=== PATIENT | male | born 1975 | race Caucasian/White ===

== ENCOUNTER 2017-08-13 23:47 | Emergency (ER) | payer SELFPAY ==
[~2017-08-13] VITALS: Ht 167.6 cm; Wt 78.0 kg
[2017-08-13 23:48] VITALS: BP 170/114; PULSE 158; RESP 20; TEMP 98.6; O2SAT 97
[2017-08-14 00:08] VITALS: BP 162/103; PULSE 131; RESP 18; O2SAT 98
[2017-08-14 00:09] VITALS: O2SAT 97
[2017-08-14] MEDS ORDERED: SODIUM CHLOR 0.9% 1000 ML INJ 1,000 ML IV ONE (00:15)
[2017-08-14] MEDS ORDERED: KETOROLAC TROMETHAMINE 30 MG/ML (IVP) VIAL IV PUSH ONE (00:15)
--- NOTE | 2017-08-14 00:15 | PD ---
HPI Chief Complaint: Chest Pain Time Seen by Provider: 00:05 Travel History International Travel<30 days: No Contact w/Intl Traveler<30days: No Traveled to known affect area: No History of Present Illness HPI 42yo M with no significant PMH presents to the ED with c/o left sided chest pain for 2 days. States it has been constant today. Pressure like, radiates to jaw and left arm. Associated with nausea, sob. Pt also was drinking alcohol today and has alcohol on breath. Denies any vomiting, abdominal pain, fever, focal weakness or numbness. Denies any cocaine use. PFSH Past Medical History Cardiovascular Problems: Yes (A FIB) Past Surgical History Cholecystectomy: Yes Social History Alcohol Use: Yes (OCC) Tobacco Use: No Substance Use: No Allergies-Medications (Allergen,Severity, Reaction): Coded Allergies: No Known Allergies (Unverified , 08/13/17) Review of Systems Except as stated in HPI: all other systems reviewed are Neg Physical Exam Narrative GENERAL: 42yo M in mild distress.+alcohol on breath. SKIN: Focused skin assessment warm/dry. HEAD: Atraumatic. Normocephalic. EYES: Pupils equal and round. No scleral icterus. No injection or drainage. ENT: No nasal bleeding or discharge. Mucous membranes pink and moist. NECK: Trachea midline. No JVD. CARDIOVASCULAR: Tachycardic at 124bpm. RESPIRATORY: No accessory muscle use. Clear to auscultation. Breath sounds equal bilaterally. GASTROINTESTINAL: Abdomen soft, non-tender, nondistended. MUSCULOSKELETAL: No obvious deformities. No clubbing. No cyanosis. No edema. NEUROLOGICAL: Awake and alert. No obvious cranial nerve deficits. Motor grossly within normal limits. Normal speech. PSYCHIATRIC: Anxious appearing. Data Data Last Documented VS Vital Signs Date Time Temp Pulse Resp B/P (MAP) Pulse Ox O2 Delivery O2 Flow Rate FiO2 08/14/17 01:18 08/14/17 00:11 18 97 Room Air 08/14/17 00:08 131 08/13/17 23:48 98.6 Orders Orders Electrocardiogram (08/13/17 23:57) Complete Blood Count With Diff (08/13/17 23:57) Basic Metabolic Panel (Bmp) (08/13/17 23:57) Ckmb (Isoenzyme) Profile (08/13/17 23:57) Troponin I (08/13/17 23:57) Chest, Single Ap (08/13/17 23:57) Iv Access Insert/Monitor (08/13/17 23:57) Ecg Monitoring (08/13/17 23:57) Oxygen Administration (08/13/17 23:57) Oximetry (08/13/17 23:57) Sodium Chlor 0.9% 1000 Ml Inj (Ns 1000 M (08/14/17 00:15) Ketorolac Inj (Toradol Inj) (08/14/17 00:15) Alcohol (Ethanol) (08/13/17 23:57) Labs Laboratory Tests Test 08/14/17 00:13 White Blood Count 9.4 TH/MM3 Red Blood Count 4.40 MIL/MM3 Hemoglobin 13.9 GM/DL Hematocrit 40.4 % Mean Corpuscular Volume 91.8 FL Mean Corpuscular Hemoglobin 31.6 PG Mean Corpuscular Hemoglobin Concent 34.5 % Red Cell Distribution Width 14.9 % Platelet Count 259 TH/MM3 Mean Platelet Volume 8.4 FL Neutrophils (%) (Auto) 52.3 % Lymphocytes (%) (Auto) 35.4 % Monocytes (%) (Auto) 8.5 % Eosinophils (%) (Auto) 3.4 % Basophils (%) (Auto) 0.4 % Neutrophils # (Auto) 4.9 TH/MM3 Lymphocytes # (Auto) 3.3 TH/MM3 Monocytes # (Auto) 0.8 TH/MM3 Eosinophils # (Auto) 0.3 TH/MM3 Basophils # (Auto) 0.0 TH/MM3 CBC Comment DIFF FINAL Differential Comment Blood Urea Nitrogen 9 MG/DL Creatinine 0.84 MG/DL Random Glucose 111 MG/DL Calcium Level 8.2 MG/DL Sodium Level 143 MEQ/L Potassium Level 3.3 MEQ/L Chloride Level 109 MEQ/L Carbon Dioxide Level 25.2 MEQ/L Anion Gap 9 MEQ/L Estimat Glomerular Filtration Rate 101 ML/MIN Total Creatine Kinase 95 U/L Troponin I LESS THAN 0.02 NG/ML Ethyl Alcohol Level 291 MG/DL [facility] Medical Decision Making Medical Screen Exam Complete: Yes Emergency Medical Condition: Yes Interpretation(s) EKG: Sinus tachycardia at 124bpm. No ST segment elevation or depression. Differential Diagnosis Anxiety vs. atypical chest pain vs. GERD vs. pneumonia Narrative Course 42yo M with left side chest pain today. Pt was in sinus tachycardia. Pt smelled of alcohol and admits to drinking today although he is not intoxicated. Pt given NS IVF and toradol for pain. Pt became verbally abusive with the nurse and is upset that I am not giving him a stronger pain medication at this time. He is signing out AMA before all his blood results came back. Last heart rate on the monitor was 98bpm. He is AAOx 3 and ambulating without assistance. AMA: The risks of leaving against medical advice without further evaluation treatment were discussed with the patient. These risks include cardiac dysfunction, cardiac dysrhythmia, possible heart attack, possible stroke or . The patient indicated understanding of these risks and appeared to have the capacity to make this decision. Labs were later reviewed after pt left. Troponin negative. Mild hypokalemia at 3.3. Blood alcohol 291. CXR negative. Diagnosis Primary Impression: Chest pain Qualified Codes: R07.9 - Chest pain, unspecified Patient Instructions: General Instructions Departure Forms: Tests/Procedures Additional Instructions: Please follow up with primary care physician or return if you change your mind. Med/Other Pt SpecificInfo: No Change to Meds Disposition: 07 AGAINST MEDICAL ADVICE Condition: Stable Khushbu Deras DO Aug 14, 2017 00:15
[2017-08-14 00:44] LABS: AUTOMATED NEUTROPHIL # 4.9 TH/MM3 (1.8-7.7); BASOPHIL % 0.4 % (0.0-2.0); EOSINOPHIL # 0.3 TH/MM3 (0-0.4); EOSINOPHIL % 3.4 % (0.0-4.0); HEMATOCRIT 40.4 % (39.0-51.0); HEMO FLAGS DIFF FINAL; LYMPH % 35.4 % (9.0-44.0); LYMPHOCYTE # 3.3 TH/MM3 (1.0-4.8); MEAN CELL VOLUME 91.8 FL (80.0-100.0); MEAN CORPUSCULAR HEMOGLOBIN 31.6 PG (27.0-34.0); MEAN CORPUSCULAR HGB CONC 34.5 % (32.0-36.0); MONO % 8.5 % (0.0-8.0); NEUT % 52.3 % (16.0-70.0); PLATELET COUNT 259 TH/MM3 (150-450); RED CELL DISTRIBUTION WIDTH 14.9 % (11.6-17.2); WHITE BLOOD COUNT 9.4 TH/MM3 (4.0-11.0)
--- NOTE | 2017-08-14 01:27 | RADRPT ---
EXAM DATE/TIME: 08/14/2017 00:36 [facility] COMPARISON: No previous studies available for comparison. INDICATIONS : Chest pain. MEDICAL HISTORY : None. SURGICAL HISTORY : None. ENCOUNTER: Initial ACUITY: 1 day PAIN SCORE: 7/10 LOCATION: Bilateral chest FINDINGS: Single AP view of the chest. Calcified granulomas in the left lung. The lungs are otherwise clear. Ca rdiomediastinal silhouette within normal limits. No evidence of pleural effusion or pneumothorax. CONCLUSION: No acute cardiopulmonary disease identified. Patrice Shelton MD on August 14, 2017 at 1:25 Board Certified Radiologist. This report was verified electronically.
[2017-08-14 01:30] LABS: ANION GAP 9 MEQ/L (5-15); BICARBONATE 25.2 MEQ/L (21.0-32.0); BLOOD UREA NITROGEN 9 MG/DL (7-18); CHLORIDE 109 MEQ/L (98-107); GLOMERULAR FILTRATION RATE 101 ML/MIN (>89); POTASSIUM 3.3 MEQ/L (3.5-5.1); SODIUM (NA) 143 MEQ/L (136-145)
[2017-08-14 01:31] LABS: ALCOHOL 291 MG/DL (0-5); CREATINE KINASE 95 U/L (39-308)
--- NOTE | 2017-08-14 10:55 | EKG ---
Date Performed: 08/14/2017 Time Performed: 00:09:48 PTAGE: 42 years EKG: SINUS TACHYCARDIA ABNORMAL RHYTHM ECG NO PREVIOUS TRACING DOCTOR: Chaz Reyes Interpretating Date/Time 08/14/2017 10:54:27
== END 2017-08-14 01:20 | disposition left against medical advice (07) ==
LOC: NEPE 23:47
DX: R07.9 Chest pain, unspecified (principal); R00.0 Tachycardia, unspecified; F10.10 Alcohol abuse, uncomplicated; Y90.8 Blood alcohol level of 240 mg/100 ml or more
CPT/HCPCS: 71010; 80048; 80307; 82550; 84484; 85025; 93005; 96374; 99285; J1885; J7030